=== PATIENT | female | born 1970 | race Caucasian/White ===

== ENCOUNTER → 2017-09-08 | Outpatient (CLI) | payer OTHER ==
[~2017-09-08] MED LIST: AMLO-511 PO; HYDR25TA PO; MULT1CAP32 PO
== END | disposition home or self-care (01) ==
LOC: EMPHLTH 07:57
PROVIDERS: ATTEND Internal Medicine
DX: R76.11 Nonspecific reaction to tuberculin skin test without active tuberculosis (principal)

== ENCOUNTER → 2021-08-12 | Outpatient (CLI) | payer OTHER ==
[~2021-08-12] MED LIST changes: +AMLO-257 PO; -AMLO-511 PO; -HYDR25TA PO; +HYDR25TA2 PO
== END | disposition home or self-care (01) ==
LOC: RADMN 08:39
PROVIDERS: ATTEND Internal Medicine
DX: R76.11 Nonspecific reaction to tuberculin skin test without active tuberculosis (principal)
CPT/HCPCS: 71045